=== PATIENT | male | born 1970 | race Caucasian/White ===

== ENCOUNTER 2019-11-13 16:17 | Emergency (ER) | payer SELFPAY ==
[2019-11-13 16:18] VITALS: BP 143/84; PULSE 72; RESP 18; TEMP 36.5; O2SAT 99; BMI 31.0
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
[2019-11-13 16:31] VITALS: RESP 18
[2019-11-13 16:33] VITALS: RESP 17
== END 2019-11-13 17:40 | disposition home or self-care (01) ==
LOC: ER 17:11
PROVIDERS: Emergency Provider Emergency Medicine
DX: Z00.00 Encounter for general adult medical examination without abnormal findings (principal); Z87.891 Personal history of nicotine dependence
CPT/HCPCS: 12345; 36415; 85025; 99284